=== PATIENT | male | born 1955 | race American Indian/Alaskan Native ===

== ENCOUNTER 2019-04-09 08:03 | Emergency (ER) | payer SELFPAY ==
[2019-04-09] MEDS ORDERED: CATAPRES PO ONE (09:46)
[2019-04-09] MEDS ORDERED: TORADOL IM ONE (09:46)
[2019-04-09 10:40] LABS: BUN/Creatinine Ratio 21; Blood Urea Nitrogen 17 mg/dL (9-20); Calcium 8.7 mg/dL (8.4-10.2); Hemolysis Index 5
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
[2019-04-09 11:40] VITALS: BP 136/84
== END 2019-04-09 11:45 | disposition home or self-care (01) ==
LOC: ED 08:03
DX: M25.552 Pain in left hip (principal); M25.512 Pain in left shoulder; I10 Essential (primary) hypertension; Z91.14 Patient's other noncompliance with medication regimen
CPT/HCPCS: 36415; 80048; 96372; 99283; J1885